=== PATIENT | male | born 1990 | race Two or more races ===

== ENCOUNTER 2018-06-07 22:07 | Emergency (ER) | payer OTHER ==
[~2018-06-07] VITALS: Ht 180.3 cm; Wt 81.6 kg
--- NOTE | 2018-06-07 22:18 | NUR ---
ED Nurse Note: Patient presents with laceration of the left hand. Patient given guaze to hold pressure, visible blood seen. Patient reports pain level of 3/10.
[2018-06-07 22:21] VITALS: BP 119/67
[2018-06-07] MEDS ORDERED: Tetanus/Diptheria/Pertussis Vaccine 0.5ml Syr IM ONE (22:30)
[2018-06-07] MEDS ORDERED: Lidocaine 1% Plain 30 ml INJ ONE (22:45)
--- NOTE | 2018-06-07 22:50 | NUR ---
ED Nurse Note: Patient's skin is clammy, and face is discolored after vasovagal reaction to laceration repair. Patient's seat was adjusted to supine position and a cold towel was placed over his forehead. Patient expressed immediate feelings of relief after accomodations.
[2018-06-07 23:20] VITALS: BP 119/67
--- NOTE | 2018-06-07 23:20 | NUR ---
ED Nurse Note: Patient discharged in stable condition. Patien reports no feeling of nausea or faintness. Patient is ambulatory with steady gait, no s/s of acute distress and patient tolerated injection of Tdap welll. ID band removed and patient verbalized understanding of discharge instructions.
--- NOTE | 2018-06-07 23:21 | Emergency Room Report ---
History of Present Illness General Chief Complaint: Laceration Source: Patient Present Illness HPI Is a 28-year-old male who is right-hand dominant. He presents with chief point of laceration to his left hand. He works as a preschool disability teacher and as he was trying to uncorked a bottle, it broke and he sustained a laceration to his left hand. No foreign body. No other injury. Bleeding controlled. Allergies: Coded Allergies: No Known Allergies (Unverified , 06/07/18) Patient History Past Medical History: see triage record, old chart reviewed Past Surgical History: none, other Pertinent Family History: none Social History: Denies: smoking Immunizations: other Reviewed Nursing Documentation: PMH: Agreed; PSxH: Agreed Nursing Documentation-PMH Past Medical History: No Stated History Review of Systems Eye: Denies: eye pain, blurred vision ENT: Denies: ear pain, nose congestion, throat swelling Respiratory: Denies: cough, shortness of breath Cardiovascular: Denies: chest pain, palpitations Gastrointestinal: Denies: abdominal pain, diarrhea, nausea, vomiting Musculoskeletal: Denies: back pain, joint pain Skin: Denies: rash Neurological: Denies: headache, numbness Endocrine: Denies: increased thirst, increased urine Hematologic/Lymphatic: Denies: easy bruising All Other Systems: negative except mentioned in HPI Physical Exam Vital Signs Date Time Temp Pulse Resp B/P (MAP) Pulse Ox O2 Delivery O2 Flow Rate FiO2 06/07/18 22:12 98.6 69 16 119/67 97 Room Air vitals normal Sp02 EP Interpretation: reviewed, normal General Appearance: well appearing, no apparent distress, alert Head: normocephalic, atraumatic Eyes: bilateral eye PERRL, bilateral eye EOMI ENT: hearing grossly normal, normal pharynx Neck: full range of motion, supple, no meningismus Respiratory: chest non-tender, lungs clear, normal breath sounds Cardiovascular #1: regular rate, rhythm, no murmur Gastrointestinal: normal bowel sounds, non tender, no mass, no organomegaly, no bruit, non-distended Musculoskeletal: back normal, gait/station normal, normal range of motion, other - 2 cm laceration to the hypothenar eminence of left palm. No foreign body. No tendon laceration. Neurologic: alert, oriented x3 Psychiatric: mood/affect normal Skin: warm/dry Procedures Laceration/Wound Repair Laceration/Wound Repair : Consent: Verbal Wound Location: upper extremity Wound's Depth, Shape: linear Wound Length (cm): 2 Wound Explored: clean Irrigated w/ Saline (ccs): 1000 Anesthesia: 1% Lidocaine Volume Anesthetic (ccs): 2 Wound Repaired With: sutures Suture Size/Type: 4:0, proline Number of Sutures: 2 Patient Tolerated: Well Complications: None Progress Area cleaned with Betadine. Local anesthetic 1% lidocaine. I placed 2 interrupted suture. Patient had a syncopal episode while was doing the laceration repair. Patient was in bed and there was no complication. He woke up right afterward. Medical Decision Making Diagnostic Impression: Primary Impression: Laceration ER Course She with a hand laceration. No foreign body. No tendon laceration. We'll discharge home. Last Vital Signs Date Time Temp Pulse Resp B/P (MAP) Pulse Ox O2 Delivery O2 Flow Rate FiO2 06/07/18 22:21 98.6 79 16 119/67 97 Room Air Status: improved Disposition: HOME, SELF-CARE Condition: Stable Scripts No Active Prescriptions or Reported Meds Referrals: NOT CHOSEN IPA/,REFERRING (PCP) Patient Instructions: Laceration Care, Adult Additional Instructions: Follow up with Workmen's Comp. doctor in 2 days for recheck. Suture out in 7- 10 days. Return if worse. Jarret Multani MD Jun 07, 2018 23:21
== END 2018-06-08 00:06 | disposition home or self-care (01) ==
LOC: EMR 22:50
DX: S61.412A Laceration without foreign body of left hand, initial encounter (principal); Z23 Encounter for immunization; W45.8XXA Other foreign body or object entering through skin, initial encounter; Y92.9 Unspecified place or not applicable
CPT/HCPCS: 12001; 90471; 90715; 99283; J2001